=== PATIENT | female | born 1990 | race Caucasian/White ===

== ENCOUNTER 2016-09-02 09:38 | Emergency (ER) | payer BC, OTHER ==
[~2016-09-02] VITALS: Ht 149.9 cm; Wt 81.6 kg
[~2016-09-02 09:38] MED LIST: MTR600X PO; PRENTAB26 PO
[2016-09-02 09:57] VITALS: TEMP 36.3; Ht 149.9 cm; Wt 81.6 kg
[2016-09-02] MEDS ORDERED: KETOROLAC TROMETHAMINE 30 MG/ML VIAL IV STA (10:06)
[2016-09-02] MEDS ORDERED: ACET-1256 PO (10:14)
[2016-09-02] MEDS ORDERED: MoRPHine SULFATE 4 MG/ML 1 ML CARP\\VIAL IV PRN (10:15)
[2016-09-02 11:01] LABS: URINE APPEARANCE CLEAR (CLEAR); URINE BILIRUBIN NEG (NEG); URINE COLOR YELLOW; URINE EPITHELIAL CELL AUTO >30 /lpf (0-5); URINE NITRITE NEG (NEG); URINE PH 6.5 (4.5-7.5); URINE SPECIFIC GRAVITY 1.019 (1.000-1.030); UROBILINOGEN NEG (NEG)
[2016-09-02 11:04] LABS: MANUAL MICROSCOPIC REQUIRED? NO; REVIEW REQ? NO
[2016-09-02 11:10] LABS: CREATININE 0.7 mg/dl (0.60-1.20)
[2016-09-02 11:11] LABS: BUN/CREATININE RATIO 15.6 (10-20); POTASSIUM 3.8 mmol/L (3.5-5.1)
[2016-09-02 11:12] LABS: C-REACTIVE PROTEIN 1.73 mg/dl (0-0.29)
--- NOTE | 2016-09-02 11:45 | DIAGNOSTIC IMAGING REPORT ---
LUMBAR SPINE 5 VIEWS HISTORY: Pain Back pain COMPARISON: None. FINDINGS: There is no fracture. No subluxation. Disc spaces are preserved. Small anterior osteophyte superior endplate L1 IMPRESSION: No fracture or subluxation within the lumbar spine. Electronically signed by: Refugio Lancaster M.D. 09/02/2016 11:44 AM Dictated Date/Time: 09/02/2016 11:44 AM
[2016-09-02 12:01] LABS: BASO % 0.1 %; BASO ABS # 0.01 K/uL (0-0.2); COMPLETE YES; EOS % 1.5 %; HEMATOCRIT 39.7 % (37-47); IG% 0.1 %; LYMPH % 31.6 %; MEAN CELL VOLUME 86.9 fL (80-100); MEAN CORPUSCULAR HEMOGLOBIN 28.2 pg (25-34); MEAN CORPUSCULAR HGB CONC 32.5 g/dl (32-36); MEAN PLATELET VOLUME 10.1 fL (7.4-10.4); MONO % 8.2 %; NEUT % 58.5 %; PLATELET COUNT 300 K/uL (130-400); RED BLOOD COUNT 4.57 M/uL (4.2-5.4); WHITE BLOOD COUNT 7.28 K/uL (4.8-10.8)
[2016-09-02] MEDS ORDERED: OXYC1TAB3 PO (13:13)
[2016-09-02] MEDS ORDERED: OXYCODONE IR HOME PACK PO ONE (13:15)
[2016-09-02 13:26] VITALS: BP 116/60; PULSE 64; O2SAT 99
--- NOTE | 2016-09-02 19:34 | EMERGENCY ROOM VISIT NOTE ---
History Report prepared by Alicia: Melvina Hairston Under the Supervision of: Dr. Farhan Barros M.D. First contact with patient: 10:03 Chief Complaint: BACK PAIN Stated Complaint: BACK PAIN History of Present Illness The patient is a 26 year old female who presents to the Emergency Room with complaints of persistent low back pain that started yesterday morning. She rates her discomfort as an 8/10 and describes the pain as feeling like "soreness ". The pain also radiates down both of her legs. Sitting up from being seated or laying down worsens her discomfort. She denies any recent injuries or trauma. She does admit to some "tingling" in her feet "a few weeks ago", but states it has resolved. The patient is 3 months post- but states she never experienced back pain during her or immediately after delivering. She reports her menstrual cycle did start this morning. She denies any chronic medical issues and states she takes no daily medications. The patient denies trauma, LOC, headache, neck pain, fevers, chills, malaise, night sweats, weight loss, history of malignancy, chest pain, breathing difficulties, abdominal pain, saddle paraesthesias, bowel or bladder dysfunction , numbness, weakness, urinary symptoms, or other complaints. Source of History: patient Onset: yesterday morning Position: back (lower) Symptom Intensity: 8/10 Quality: other ("soreness") Timing: other (persistent) Modifying Factors (Worsening): movement (sitting up from being seated or laying down) Review of Systems See HPI for pertinent positives and negatives. A total of ten systems were reviewed and were otherwise negative. Past Medical & Surgical Medical Problems: (1) Premature rupture of membranes Social History Smoking Status: Former Smoker Alcohol Use: occasionally Drug Use: none Marital Status: in relationship Housing Status: lives with family Occupation Status: employed Current/Historical Medications Scheduled PRN Acetaminophen (Tylenol), 1,000 MG PO UD PRN for Headache or Pain Oxycodone Ir (Roxicodone Ir), 1-2 TAB PO Q4H PRN for Pain Allergies Coded Allergies: No Known Allergies (Unverified , 09/02/16) Physical Exam Vital Signs Date Time Temp Pulse Resp B/P Pulse Ox O2 Delivery O2 Flow Rate FiO2 09/02/16 13:26 64 16 116/60 99 09/02/16 12:00 77 16 104/48 97 09/02/16 09:57 36.3 80 16 129/84 97 Room Air Physical Exam GENERAL: Awake, alert, well-appearing, in no distress HENT: Normocephalic, atraumatic. Oropharynx unremarkable. EYES: Normal conjunctiva. Sclera non-icteric. NECK: Supple. No nuchal rigidity. FROM. No JVD. RESPIRATORY: Clear to auscultation. CARDIAC: Regular rate, normal rhythm. Extremities warm and well perfused. Pulses equal. ABDOMEN: Soft, non-distended. No tenderness to palpation. No rebound or guarding. No masses. RECTAL: Deferred. MUSCULOSKELETAL: Chest examination reveals no tenderness. The back is symmetrical on inspection without obvious abnormality. There is no CVA tenderness to palpation. No joint edema. LOWER EXTREMITIES: Calves are equal size bilaterally and non-tender. No edema. No discoloration. NEURO: Normal sensorium. No sensory or motor deficits noted. Symmetric reflexes , negative SLR, no saddle anesthesia. SKIN: No rash or jaundice noted. Medical Decision & Procedures ER Provider Diagnostic Interpretation: This X-Ray was reviewed and interpreted by myself and the radiologist. LUMBAR SPINE 5 VIEWS HISTORY: Pain Back pain COMPARISON: None. FINDINGS: There is no fracture. No subluxation. Disc spaces are preserved. Small anterior osteophyte superior endplate L1 IMPRESSION: No fracture or subluxation within the lumbar spine. Electronically signed by: Refugio Lancaster M.D. 09/02/2016 11:44 AM Laboratory Results 09/02/16 10:40 Red Blood Count 4.57, Mean Corpuscular Volume 86.9, Mean Corpuscular Hemoglobin 28.2, Mean Corpuscular Hemoglobin Concent 32.5, Mean Platelet Volume 10.1, Neutrophils (%) (Auto) 58.5, Lymphocytes (%) (Auto) 31.6, Monocytes (%) (Auto) 8.2, Eosinophils (%) (Auto) 1.5, Basophils (%) (Auto) 0.1, Neutrophils # (Auto) 4.25, Lymphocytes # (Auto) 2.30, Monocytes # (Auto) 0.60, Eosinophils # (Auto) 0.11, Basophils # (Auto) 0.01 09/02/16 10:40 Test 2/19/17 10:40 White Blood Count 7.28 K/uL (4.8-10.8) Red Blood Count 4.57 M/uL (4.2-5.4) Hemoglobin 12.9 g/dL (12.0-16.0) Hematocrit 39.7 % (37-47) Mean Corpuscular Volume 86.9 fL (80-100) Mean Corpuscular Hemoglobin 28.2 pg (25-34) Mean Corpuscular Hemoglobin Concent 32.5 g/dl (32-36) Platelet Count 300 K/uL (130-400) Mean Platelet Volume 10.1 fL (7.4-10.4) Neutrophils (%) (Auto) 58.5 % Lymphocytes (%) (Auto) 31.6 % Monocytes (%) (Auto) 8.2 % Eosinophils (%) (Auto) 1.5 % Basophils (%) (Auto) 0.1 % Neutrophils # (Auto) 4.25 K/uL (1.4-6.5) Lymphocytes # (Auto) 2.30 K/uL (1.2-3.4) Monocytes # (Auto) 0.60 K/uL (0.11-0.59) Eosinophils # (Auto) 0.11 K/uL (0-0.5) Basophils # (Auto) 0.01 K/uL (0-0.2) RDW Standard Deviation 45.8 fL (36.4-46.3) RDW Coefficient of Variation 14.4 % (11.5-14.5) Immature Granulocyte % (Auto) 0.1 % Immature Granulocyte # (Auto) 0.01 K/uL (0.00-0.02) Erythrocyte Sedimentation Rate 28 mm/hr (0-21) Urine Color YELLOW Urine Appearance CLEAR (CLEAR) Urine pH 6.5 (4.5-7.5) Urine Specific [place] 1.019 (1.000-1.030) Urine Protein NEG (NEG) Urine Glucose (UA) NEG (NEG) Urine Ketones NEG (NEG) Urine Occult Blood 3+ (NEG) Urine Nitrite NEG (NEG) Urine Bilirubin NEG (NEG) Urine Urobilinogen NEG (NEG) Urine Leukocyte Esterase NEG (NEG) Urine WBC (Auto) 1-5 /hpf (0-5) Urine RBC (Auto) 10-30 /hpf (0-4) Urine Hyaline Casts (Auto) 0 /lpf (0-5) Urine Epithelial Cells (Auto) >30 /lpf (0-5) Urine Bacteria (Auto) NEG (NEG) Anion Gap 6.0 mmol/L (3-11) Est Creatinine Clear Calc Drug Dose 113.6 ml/min Estimated GFR () 139.6 Estimated GFR (Non- 120.4 BUN/Creatinine Ratio 15.6 (10-20) Calcium Level 9.0 mg/dl (8.5-10.1) C-Reactive Protein 1.73 mg/dl (0-0.29) Laboratory results reviewed by me Medications Administered Medications (Trade) Dose Ordered Sig/Lauren Route Start Time Stop Time Status Last Admin Dose Admin Morphine Sulfate (MoRPHine SULFATE INJ) 4 mg Q1H PRN IV 09/02/16 10:15 09/02/16 13:46 DC 09/02/16 11:08 4 MG Ketorolac Tromethamine (Toradol Inj) 30 mg NOW STAT IV 09/02/16 10:06 09/02/16 10:09 DC 09/02/16 11:07 30 MG Oxycodone HCl (Roxicodone Immediate Rel 5MG Home Pack) 1 homepack UD ONCE PO 09/02/16 13:15 09/02/16 13:17 DC 09/02/16 13:25 1 HOMEPACK ED Course 1005: The patient was evaluated in room C9. A complete history and physical exam was performed. 1006: Toradol 30 mg IV. 1015: Morphine Sulfate 4 mg IV. 1058: I reevaluated the patient. She is feeling much better. 1310: I reevaluated the patient. She is still feeling well and ready to go home. I discussed her results and discharge instructions and she verbalized complete understanding and agreement. 1315: Oxycodone HCl 1 home pack PO. Medical Decision Triage Nursing notes reviewed. The patient's presentation and history were concerning for back pain. Etiologies such as lumbago, sciatica, cauda equina, epidural abscess, osteomyelitis, fracture, aortic disease, metastatic disease, infection, renal colic, gastrointestinal, as well as others were entertained. The patient was evaluated. She was doing well but was uncomfortable with moving. She had no significant trauma. She has not had any flulike symptoms. No fever. The patient was given Toradol and a small dose of morphine. This did make her feel better. X-ray imaging did not reveal any acute findings. Her CBC was normal. Patient had a very subtle elevation of her ESR and CRP. Her urinalysis showed some blood but no other significant findings. Chemistry panel was unremarkable. She does note doing a lot of bending. She does not have any risk factor for infection. Since she is feeling better I discussed conservative management. She will need close follow-up. If she worsens, develops fever, or any neurologic symptoms she will need to come back to the Emergency Room for reevaluation. Close outpatient follow-up with her primary physician was discussed and she was in agreement. She is asked for a work note and was given one. By the evaluation outlined above other emergent etiologies such as those listed in the differential, as well as others, were deemed relatively unlikely. The patient and significant other were informed about the findings as listed above. All questions were answered and they were pleased with the treatment. Return instructions were outlined and the patient was discharged in stable condition. The patient was referred to her PCP for follow-up this week for a recheck of the current condition. The chart was completed utilizing [employer] Speech voice recognition software. Grammatical errors, random word insertions, pronoun errors, and incomplete sentences are an occasional consequence of this system due to software limitations, ambient noise, and hardware issues. Any formal questions or concerns about the content, text, or information contained within the body of this dictation should be directly addressed to the physician for clarification. Impression Primary Impression: Low back pain Scribe Attestation The scribe's documentation has been prepared under my direction and personally reviewed by me in its entirety. I confirm that the note above accurately reflects all work, treatment, procedures, and medical decision making performed by me. Departure Information Dispostion Home / Self-Care Prescriptions Oxycodone Ir (Roxicodone Ir) 5 Mg Tab 1-2 TAB PO Q4H Y for Pain, #10 TAB Prov: Farhan Barros MD 09/02/16 Referrals No Doctor, Assigned (PCP) Patient Instructions My [facility] Additional Instructions BACK PAIN/INJURY INSTRUCTIONS: DO NOT drive, drink alcohol, operate machinery, or perform dangerous activities today. You were given medications in the ER that can affect your ability to safely function or operate a vehicle. Oxycodone (OxyIR) 5mg: Take 1-2 pills every four hours for breakthrough pain. Avoid alcohol, operating machinery or dangerous equipment, working on ladders or roofs, DRIVING, or situations where being under the influence may be dangerous. It is recommended to use an [id number]-[id number] stool softener such as Colace, 100mg twice daily while taking this medication to avoid constipation. Ibuprofen(Motrin, Advil) may be used for fever or pain. Use 600mg every six hours as needed. Take with food. Avoid using more than 2400mg in a 24 hour period. Do not use 2400mg per day for more than three consecutive days without physician direction. Prolonged inappropriate use can lead to stomach upset or ulcers. This medication can be taken if you need to drive, work, or perform activities which may be dangerous when taking narcotic pain medication. (AND/OR) Acetaminophen(Tylenol) may be used for fever or pain. Use 1000mg every six hours as needed. Avoid using more than 4000mg in a 24 hour period. This medication can be taken if you need to drive, work, or perform activities which may be dangerous when taking narcotic pain medication. Rest and avoid heavy lifting until your symptoms resolve and then gradually return to full activity. A good rule of thumb is if it hurts your back to perform a certain activity, then it should be avoided until you are healthy again. A heating pad, warm compresses, or a hot shower may help with tight muscles and can be done several times a day as needed. Continue current medications. Return to the ER immediately for any numbness, tingling, severe pain, loss of control of your bowels or bladder, inability to walk, or as needed. Follow up with your primary care physician within 3-5 days for a recheck of your current condition.
== END 2016-09-02 13:42 | disposition home or self-care (01) ==
LOC: C.EDB 09:39 → C.EDC 13:42
DX: M54.5 Low back pain (principal); Z87.891 Personal history of nicotine dependence

== ENCOUNTER 2019-02-03 03:14 | Inpatient (IN) ==
--- OUTSIDE RECORDS SUMMARY | 2019-02-03 03:22 | External Medical Summary | Continuity of Care Document ---
:1990 Author Name Anne Marie Tavares Address Unavailable Unavailable , Care Team Providers Name Role Phone Unavailable Unavailable Unavailable PCP, UNKNOWN Unavailable Unavailable Unavailable Unavailable Unavailable Problems Cellulitis (682.9) (L03.90) Allergies and Adverse Reactions No Known Drug Allergies (Allergy) Medications Medications not documented Procedures Procedures not documented Immunizations DTaP On: 1991 0:00 IPV On: 1991 0:00 HIB On: 1991 0:00 HIB On: 1991 0:00 DTaP On: 1991 0:00 DTaP On: 1991 0:00 HIB On: 1991 0:00 Hepatitis B On: 1991 0:00 Hepatitis B On: 09-Feb-1992 0:00 IPV On: 17-May-1992 0:00 Hepatitis B On: 28-Jun-1992 0:00 DTaP On: 25-Jul-1992 0:00 IPV On: 25-Jul-1992 0:00 HIB On: 25-Jul-1992 0:00 MMR On: 25-Jul-1992 0:00 DTaP On: 06-May-1995 0:00 IPV On: 06-May-1995 0:00 MMR On: 06-May-1995 0:00 Varicella On: 09-Feb-1997 0:00 Influenza On: 11-May-1999 0:00 Influenza On: 13-Jun-1999 0:00 Influenza On: 15-Jun-1999 0:00 Td On: 19-Nov-2002 0:00 Influenza On: 13-May-2003 0:00 Influenza On: 18-Jun-2005 0:00 Influenza On: 17-Jun-2006 0:00 Varicella On: 24-Mar-2007 0:00 Meningo (Menactra) On: 24-Mar-2007 0:00 HPV (Gardasil) On: 24-Mar-2007 0:00 HPV (Gardasil) On: 26-May-2007 0:00 Influenza On: 25-Jun-2007 0:00 HPV (Gardasil) On: 23-Sep-2007 0:00 Influenza On: 12-May-2008 0:00 Tdap On: 12-Aug-2008 0:00 Plan of Treatment Planned Observations Planned Goals not documented Results No Known Results Results not documented
[2019-02-03] MEDS ORDERED: OXYTOCIN 30 UNITS/500ML NSS ONE (03:27)
[2019-02-03] MEDS ORDERED: SUPERCREAM 0.870% 15 GM JAR EXT PRN ×2 (03:47→03:51)
[2019-02-03] MEDS ORDERED: DIPHTHERIA/TETANUS/PERTUSSIS 0.5 ML SYR/VIAL IM ONE (03:47)
[2019-02-03] MEDS ORDERED: LACTATED RINGER'S 1,000 ML IV PRN (03:47)
[2019-02-03] MEDS ORDERED: HYDROCORTISONE ACETATE 25 MG SUPP PR PRN ×2 (03:47→03:51)
[2019-02-03] MEDS ORDERED: BENZOCAINE 20% AER SPR 82.5 GM CAN EXT PRN ×2 (03:47→03:51)
[2019-02-03] MEDS ORDERED: OXYTOCIN 30 UNITS/500 ML BAG IV PRN ×3 (03:47→03:51)
[2019-02-03] MEDS ORDERED: ACETAMINOPHEN 325 MG TAB PO PRN ×2 (03:47→03:51)
[2019-02-03] MEDS ORDERED: BISACODYL 10 MG SUPP PR PRN ×2 (03:47→03:51)
[2019-02-03] MEDS ORDERED: IBUPROFEN 600 MG TAB PO PRN (03:51)
[2019-02-03 04:11] LABS: Hematocrit (blood only) 34.2 % (37-47); Hemoglobin 11.1 g/dL (12.0-16.0); Mean Corpuscular Volume 87.2 fL (80-100); Mean Platelet Volume 10.5 fL (7.4-10.4); Platelet Count 153 K/uL (130-400); RDW Coefficient of Variation 15.3 % (11.5-14.5); RDW Standard Deviation 49.1 fL (36.4-46.3); Red Blood Count 3.92 M/uL (4.2-5.4); White Blood Count 9.92 K/uL (4.8-10.8)
[2019-02-03 04:46] LABS: Mean Corpuscular Hgb Conc 32.5 g/dL (32-36)
[2019-02-03] MEDS: IBUPROFEN 600 MG TAB PO PRN ×2 (05:48→21:09)
--- NOTE | 2019-02-03 07:58 | Delivery Summary ---
DATE OF OPERATION: 02/03/2019 Patient is a 28-year-old G3, P2-0-0-2 at 38 weeks and 6 days of gestation. She presented to labor and delivery in active labor. She started to feel contractions around 1:00 a.m. and then they got closer and more painful around 2:00 a.m. When she presented to labor and delivery, cervix was 9 cm dilated, 90% effaced with a bulging bag and head was at 0 station. She was uncomfortable during exam. Membranes were ruptured. Meconium stained amniotic fluid was noted. Then patient desired to push. She pushed through 2 contractions and delivered the head without difficulty. Shoulders came right after the head. Baby was handed off to the mother where mouth and nose were suctioned. Cord was clamped x2 and cut, it was a 3-vessel cord. Cord blood was obtained. The vagina and perineum were checked for lacerations. There was small first-degree right labial and perineal lacerations. The patient was given 1% lidocaine for local anesthesia. Those were repaired with 3-0 Vicryl on SH needle in a running fashion. Excellent hemostasis was achieved. Placenta was found to be in the vagina and delivered spontaneous as intact and complete. Uterus was explored and found to be empty. Fundus was firm. EBL was 100 ml. Mom and baby tolerated the procedure well. Sponge, lap, needle counts were correct x2. Baby was a viable female delivered at 3:30 a.m. Apgars were 8 and 9. No complications happened and I was present during the whole procedure. I attest to the content of the Intraoperative Record and any orders documented therein. Any exceptions are noted below. NELSON
[2019-02-03] MEDS ORDERED: PRENATAL VITAMIN 1 TAB PO SCH (08:00)
[2019-02-03] MEDS ORDERED: DOCUSATE SODIUM 100 MG CAP PO SCH (08:00)
[2019-02-03] MEDS: PRENATAL VITAMIN 1 TAB PO SCH (08:24)
[2019-02-03] MEDS: DOCUSATE SODIUM 100 MG CAP PO SCH ×2 (08:24→21:06)
[2019-02-03] MEDS: FERROUS SULFATE 325 MG TAB PO SCH (08:24)
[2019-02-04 06:43] LABS: Hemoglobin 10.2 g/dL (12.0-16.0); Mean Corpuscular Hgb Conc 31.9 g/dL (32-36); Mean Corpuscular Volume 89.6 fL (80-100); Mean Platelet Volume 10.4 fL (7.4-10.4); Platelet Count 159 K/uL (130-400); RDW Coefficient of Variation 15.4 % (11.5-14.5); RDW Standard Deviation 50.2 fL (36.4-46.3); Red Blood Count 3.57 M/uL (4.2-5.4); White Blood Count 9.72 K/uL (4.8-10.8)
[2019-02-04] MEDS: PRENATAL VITAMIN 1 TAB PO SCH (07:59)
[2019-02-04] MEDS: FERROUS SULFATE 325 MG TAB PO SCH (07:59)
[2019-02-04] MEDS: DOCUSATE SODIUM 100 MG CAP PO SCH (07:59)
[2019-02-04] MEDS: IBUPROFEN 600 MG TAB PO PRN (07:59)
--- NOTE | 2019-02-04 09:28 | Obstetrical Progress Note ---
Date of Service February 04, 2019 Physical Exam Physical Exam: abdomen soft and non tender no calf tenderness ambulating well vaginal bleeding scant hgb 10.2 Results & Data Vital Signs (Past 12 Hours) Vital Signs Temp Pulse Resp BP Pulse Ox 02/04/19 00:00 36.5 C 90 16 112/75 99
[2019-02-04] MEDS ORDERED: BISACODYL 5 MG TABEC PO SCH ×2 (20:00)
== END 2019-02-04 13:45 | disposition home or self-care (01) | DRG 807 ==
LOC: OPB 03:14 → 4S1 03:21 → 4S2 06:05

== ENCOUNTER 2021-10-11 07:34 | Inpatient (IN) ==
[2021-10-11] MEDS ORDERED: LACTATED RINGER'S 1,000 ML IV PRN (07:46)
[2021-10-11] MEDS ORDERED: OXYTOCIN 30 UNITS/500 ML BAG IV PRN ×3 (07:46→11:57)
--- NOTE | 2021-10-11 08:00 | History & Physical Report ---
Date of Service October 11, 2021 Assessment & Plan (1) Post-term , 40-42 weeks of gestation: Plan: 31-year-old -0-0-3 at 40 weeks and 1 day gestation presenting today for scheduled of inductions for postdates, history of prior precipitous labor, Vital signs stable afebrile, heart rate reassuring, GBS negative, Coronavirus testing negative, Cervix is favorable, Plan to admit, monitor, labs, oxytocin per protocol, AROM when able, Questions were answered. (2) History of precipitous delivery: (3) Maternal congenital cardiac anomaly affecting , antepartum: (4) Obesity affecting in third trimester, antepartum: Admission and Anticipated Discharge Date Admission Date: October 11, 2021 History of Present Illness Primary Care Provider: NO PCP Patient is a 31-year-old -0-0-3 at 40 weeks and 1 day gestation who was scheduled for induction of labor for postdates. She has no complaints No ctxs/ LOF/VB +FM's Her has been complicated by, 1. Class II obesity, NST per protocol, 2. Maternal history of , very small not significant per director hedis 3. Elevated TSH at 4.3 on September 05, was referred to PCP but was not seen by her PCP, not on any medication, 4. Maternal anemia, on iron with vitamin C, 5. History of precipitous labor with her third baby 6. COVID during , recovered well, not vaccinated, last COVID testing was negative on 10/09 GBS negative Allergies Allergy/AdvReac Type Severity Reaction Status Date / Time No Known Allergies Allergy Verified 02/03/19 04:12 Home Medications Medication Instructions Recorded Confirmed Type ferrous sulfate 325 mg (65 mg 325 mg PO DAILY 09/28/18 02/03/19 History iron) tablet (Iron (ferrous sulfate)) vit no.133-ferrous 1 tab PO DAILY 09/28/18 02/03/19 History fumarate 28 mg-folic acid 800 mcg tablet () Patient History Medical History (Updated 10/11/21 @ 07:59 by Mariano Coker MD) COVID Patient is unsure of exact dates "End of August" No pertinent past medical history Surgical History History of adenoidectomy Family History Other No known health problems Social History Smoking Status: Former smoker Hx Alcohol Use: No Hx Substance Use: No Preferred Language: Bulgarian Communication Ability: Effective Crystal Inspector Required: No Beliefs That Will Affect Care: None marital status: Single marital status details: Guero Rossi Current Living Situation: Family and Significant Other current occupational status: employed Other Information That Helps Us Care for You: No other: Homemaker Feels Safe at Home: Yes Safety Concerns: Feels Safe At This Time Assistive Devices: None OB History 3 full-term 's, precipitous delivery with her third baby 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) Vital Signs (Past 12 Hours) Vital Signs Pulse BP 10/11/21 07:44 136 H 119/82 Laboratory Results Lab Results 10/11/21 Range/Units 07:56 WBC 7.64 (4.8-10.8) K/uL RBC 3.80 L (4.2-5.4) M/uL Hgb 11.2 L (12.0-16.0) g/dL Hct 32.9 L (37-47) % MCV 86.6 (80-100) fL MCH 29.5 (25-34) pg MCHC 34.0 (32-36) g/dL RDW Std Deviation 51.9 H (36.4-46.3) fL RDW Coeff of Winter 16.3 H (11.5-14.5) % Plt Count 182 (130-400) K/uL MPV 10.3 (7.4-10.4) fL
[2021-10-11 08:11] LABS: Hematocrit (blood only) 32.9 % (37-47); Hemoglobin 11.2 g/dL (12.0-16.0); Mean Corpuscular Hemoglobin 29.5 pg (25-34); Mean Corpuscular Volume 86.6 fL (80-100); Mean Platelet Volume 10.3 fL (7.4-10.4); Platelet Count 182 K/uL (130-400); RDW Coefficient of Variation 16.3 % (11.5-14.5); RDW Standard Deviation 51.9 fL (36.4-46.3); White Blood Count 7.64 K/uL (4.8-10.8)
[2021-10-11 08:31] LABS: Albumin Globulin Ratio 1.1 (0.9-2); Albumin Level 3.2 gm/dl (3.4-5.0); BUN Creatinine Ratio 13.8 (10-20); Bilirubin,Total 0.2 mg/dl (0.2-1.0); Calcium 8.2 mg/dl (8.5-10.1); Creatinine Clr Calc Pharmacy 138.9 ml/min; Est GFR (African American) 143.4 ml/min; Est GFR (Non-African American) 123.7 ml/min; Globulin 2.8 gm/dl (2.5-4.0); Potassium 3.4 mmol/L (3.5-5.1)
[2021-10-11] MEDS ORDERED: bisacodyL 10 MG SUPP PR PRN (11:57)
[2021-10-11] MEDS ORDERED: oxyCODONE/ACETAMINOPHEN 5mg/325mg TAB PO PRN (11:57)
[2021-10-11] MEDS ORDERED: BENZOCAINE 20% AER SPR 82.5 GM CAN EXT PRN (11:57)
[2021-10-11] MEDS ORDERED: MEASLES, MUMPS & RUBELLA VIRUS VIAL SQ ONE (11:57)
[2021-10-11] MEDS ORDERED: HYDROCORTISONE ACETATE 25 MG SUPP PR PRN (11:57)
[2021-10-11] MEDS ORDERED: DIPHTHERIA/TETANUS/PERTUSSIS 0.5 ML SYR/VIAL IM ONE (11:57)
[2021-10-11] MEDS ORDERED: ACETAMINOPHEN 325 MG TAB PO PRN (11:57)
--- NOTE | 2021-10-11 12:04 | Delivery Summary ---
Vaginal Delivery Summary Date of Service October 11, 2021 Vaginal Delivery Summary Patient use the bathroom and came back very painful and ask for epidural. Her nurse Celeste checked her and she was fully dilated and had a small leakage of fluid. When I came to the room she was very uncomfortable and was feeling pressure. Head was at +2 station. She pushed only once and delivered the head without difficulty. There was a nuchal cord around the neck x1 which was reduced. The shoulders were delivered with minimal traction and the baby was handed off to the mother where mouth and nose were suctioned. He was vigorously moving and crying at that point. Then the cord was clamped times and cut at 1 minute delay. And perineum were checked for lacerations there was a very small first-degree laceration after a left labia which was not bleeding. After discussing the patient with the benefits of repairing with local lidocaine, decided not to repair. Staff vagina and perineum were intact. Then the placenta was found to be in the vagina, delivered spontaneously as intact and complete. The uterus was explored and found to be empty. The lower segment was cleared of all clots and debris's and fundus was firm. EBL was 100 mL. The mom and baby tolerated procedure well. The sponge and instrument count was correct x2. Baby was a viable female infant, Apgars were 8/9 and weight is pending. No complications happened and I was present during whole procedure.
[2021-10-11] MEDS: IBUPROFEN 600 MG TAB PO PRN ×2 (12:35→19:34)
[2021-10-11] MEDS: DOCUSATE SODIUM 100 MG CAP PO SCH (20:37)
[2021-10-12 06:28] LABS: Hematocrit (blood only) 32.5 % (37-47); Hemoglobin 10.6 g/dL (12.0-16.0); Mean Corpuscular Hemoglobin 28.7 pg (25-34); Mean Corpuscular Hgb Conc 32.6 g/dL (32-36); Mean Corpuscular Volume 88.1 fL (80-100); Mean Platelet Volume 10.2 fL (7.4-10.4); Platelet Count 168 K/uL (130-400); RDW Standard Deviation 52.4 fL (36.4-46.3); Red Blood Count 3.69 M/uL (4.2-5.4)
--- NOTE | 2021-10-12 07:26 | Obstetrical Progress Note ---
Date of Service October 12, 2021 Assessment & Plan (1) Normal course: Continue routine course D/c home if baby is discharged Subjective Ambulation: ambulating normally Voiding: no voiding problems Passing Gas:: Yes Diet Tolerance:: regular diet Lochia:: Moderate Feeding Type:: bottle feeding Current Pain Level(1-10): 0 Doing well, wants to go home today if baby is discharged Physical Exam Constitutional WD/WN, vitals as above Respiratory normal respiratory effort, lungs clear to auscultation Cardiovascular RRR, no murmur, no edema Gastrointestinal (Abdomen) normal bowel sounds, soft, nontender, no hepatosplenomegaly Results & Data ([facility]) Vital Signs (Past 12 Hours) Vital Signs Temp Pulse Resp BP Pulse Ox 10/12/21 03:40 36.5 C 71 18 107/73 99 10/11/21 23:05 36.4 C L 75 18 99 10/11/21 19:36 36.4 C L 74 20 108/82 Laboratory Results H/H 10.6/32.5%
[2021-10-12] MEDS: DOCUSATE SODIUM 100 MG CAP PO SCH (07:46)
[2021-10-12] MEDS ORDERED: PRENATAL VITAMIN 1 TAB PO SCH (08:00)
[2021-10-12] MEDS ORDERED: FERROUS SULFATE 325 MG TAB PO SCH (08:00)
[2021-10-12] MEDS ORDERED: bisacodyL 5 MG TABEC PO SCH (20:00)
== END 2021-10-12 13:20 | disposition home or self-care (01) | DRG 807 ==
LOC: 4S1 07:34 → 4E2 14:40
DX: O99.892 Other specified diseases and conditions complicating childbirth; O99.02 Anemia complicating childbirth; Z86.16 Personal history of COVID-19; Z3A.40 40 weeks gestation of pregnancy; O69.81X0 Labor and delivery complicated by cord around neck, without compression, not applicable or unspecified; O99.214 Obesity complicating childbirth; Q24.9 Congenital malformation of heart, unspecified; Z37.0 Single live birth; O48.0 Post-term pregnancy; E66.9 Obesity, unspecified; Z87.891 Personal history of nicotine dependence